=== PATIENT | female | born 1970 | race Two or more races ===

== ENCOUNTER 2022-09-06 08:51 | Inpatient (IN) | payer OTHER ==
[~2022-09-06] VITALS: Ht 157.5 cm; Wt 73.5 kg
[2022-09-06] MEDS ORDERED: SYNTHROID125 MCG PO (14:35)
[2022-09-06] MEDS ORDERED: PROVENTIL HFA6.7 GM IH (14:35)
== END 2022-09-14 14:05 | disposition home or self-care (01) | DRG 738 ==
LOC: O/R 09-12 05:50 → SURH 09-12 09:00 → OB/GYN 09-12 17:18
PROVIDERS: ADMIT Obstetrics & Gynecology Gynecologic Oncology; ATTEND Obstetrics & Gynecology Gynecologic Oncology
PROC: 0UT74ZZ Resection of Bilateral Fallopian Tubes, Percutaneous Endoscopic Approach (ICD-10-PCS; 2022-09-12)
PROC: 0UT24ZZ Resection of Bilateral Ovaries, Percutaneous Endoscopic Approach (ICD-10-PCS; 2022-09-12)
PROC: 0DBW4ZZ Excision of Peritoneum, Percutaneous Endoscopic Approach (ICD-10-PCS; 2022-09-12)
PROC: 07BC4ZZ Excision of Pelvis Lymphatic, Percutaneous Endoscopic Approach (ICD-10-PCS; 2022-09-12)
PROC: 07BD4ZZ Excision of Aortic Lymphatic, Percutaneous Endoscopic Approach (ICD-10-PCS; 2022-09-12)
PROC: 0DBU4ZZ Excision of Omentum, Percutaneous Endoscopic Approach (ICD-10-PCS; 2022-09-12)
PROC: 0DTJ4ZZ Resection of Appendix, Percutaneous Endoscopic Approach (ICD-10-PCS; 2022-09-12)
PROC: 0UT94ZZ Resection of Uterus, Percutaneous Endoscopic Approach (ICD-10-PCS; principal; 2022-09-12 14:45)
DX: C56.2 Malignant neoplasm of left ovary (principal); N80.101 Endometriosis of right ovary, unspecified depth; N80.201 Endometriosis of right fallopian tube, unspecified depth; D25.1 Intramural leiomyoma of uterus; D25.2 Subserosal leiomyoma of uterus; N80.03 Adenomyosis of the uterus; N84.0 Polyp of corpus uteri; N73.6 Female pelvic peritoneal adhesions (postinfective); N80.4 Endometriosis of rectovaginal septum and vagina; Z20.822 Contact with and (suspected) exposure to COVID-19; K36 Other appendicitis

== ENCOUNTER 2024-01-13 08:00 | Day surgery (SDC) | payer OTHER ==
[~2024-01-13 08:00] MED LIST: PROVENTIL HFA6.7 GM IH; SYNTHROID125 MCG PO
[2024-01-13] MEDS ORDERED: CEFAZOLIN SODIUM 1,000 MG VIAL ONE ×2 (10:12→16:09)
[2024-01-13] MEDS ORDERED: LIDOCAINE HCL 1% 20ML VIAL IJ ONE (13:37)
[2024-01-13] MEDS ORDERED: HEPARIN SODIUM,PORCINE 500 UNITS/5 ML VIAL IV ONE (14:08)
[2024-01-13] MEDS ORDERED: FAMOTIDINE/PF 20 MG/10 ML SYRINGE IV SCH (16:00)
[2024-01-13] MEDS ORDERED: RINGERS SOLUTION,LACTATED 1,000 ML IV SCH (16:00)
[2024-01-13] MEDS ORDERED: CEFAZOLIN SODIUM 1,000 MG VIAL IV SCH (16:00)
[2024-01-13] MEDS ORDERED: FAMOTIDINE/PF 20 MG/2 ML VIAL ONE (16:10)
== END 2024-01-13 17:15 | disposition home or self-care (01) ==
LOC: CIR.AMB 08:00
PROVIDERS: ATTEND Specialist
DX: C56.2 Malignant neoplasm of left ovary (principal); Z88.9 Allergy status to unspecified drugs, medicaments and biological substances; E03.9 Hypothyroidism, unspecified; F41.9 Anxiety disorder, unspecified; J45.909 Unspecified asthma, uncomplicated; Z91.013 Allergy to seafood
CPT/HCPCS: 36561; C1751

== ENCOUNTER 2025-01-14 14:01 | Inpatient (IN) | payer OTHER ==
[~2025-01-14] VITALS: Ht 152.4 cm; Wt 68.0 kg
[2025-01-14] MEDS ORDERED: KETOROLAC TROMETHAMINE 30 MG VIAL IV ONE (16:30)
[2025-01-14] MEDS ORDERED: FAMOTIDINE/PF 20 MG/2 ML VIAL IV ONE (16:30)
[2025-01-14] MEDS ORDERED: 0.9 % SODIUM CHLORIDE 500 ML IV ONE ×2 (16:30→17:15)
[2025-01-14] MEDS ORDERED: ONDANSETRON HCL 2 MG/ML VIAL IV ONE (16:30)
[2025-01-14] MEDS ORDERED: FAMOTIDINE/PF 20 MG/2 ML VIAL ONE (17:05)
[2025-01-14] MEDS ORDERED: KETOROLAC TROMETHAMINE 30 MG VIAL ONE (17:05)
[2025-01-14] MEDS ORDERED: ONDANSETRON HCL 2 MG/ML VIAL ONE (17:05)
[2025-01-14 17:35] LABS: BASO % 0.3 % (0.1-1.2); EOS # 0.16 (0.04-0.54); EOS % 2.3 % (0.7-7.0); LYMPH # 1.27 (1.18-3.74); LYMPH % 18.0 % (19.3-53.1); MEAN PLATELET VOLUME 10.00 fl (9.4-12.4); MONO # 0.57 (0.24-0.82); MONO % 8.1 % (4.7-12.5); NEUT # 5.00 (1.56-6.13); NEUT % 70.9 % (34.0-71.1); RED CELL DISTRIBUTION WIDTH 13.5 % (11.6-14.4)
[2025-01-14 17:48] LABS: URINE APPEARANCE Clear; URINE BILIRRUBIN Negative (NEGATIVE); URINE BLOOD Trace; URINE COLOR Yellow; URINE GLUCOSE Negative (NEGATIVE); URINE KETONE Negative (NEGATIVE); URINE LEUKOCYTE Negative; URINE NITRATE Negative; URINE PROTEIN Trace (NEGATIVE); URINE UROBILINOGEN 0.2 E.U./dl
[2025-01-14 17:51] LABS: URINE BACTERIA 14.3 uL (0.0-1933); URINE EPITHELIAL CELLS 4.3 uL (0.0-38.8); URINE WBC 19.9 uL (0.0-23.2)
[2025-01-14 17:52] LABS: INR 1.01
[2025-01-14 17:58] LABS: ALT/SGPT 17 U/L (12-78); AST/SGOT 18 U/L (15-37); BILIRUBIN TOTAL 0.37 mg/dL (0.3-1.2); BILIRUBIN,CONJUGATED < 0.10 mg/dL (0.0-0.2); BUN CREA RATIO 10 (7.0-25.0); CREATININE SERUM 1.81 mg/dL (0.55-1.02); GFR 29.13; GLOBULINA 5.0 G/DL (2.4-3.5); GLUCOSE FASTING 110 mg/dL (65-100); OSMOLALITY SERUM 288 MOSM/KG (275-295)
[2025-01-14 18:06] LABS: URINE CAST 0.00 uL (0.0-1.40); URINE RBC 1.7 uL (0.0-20.8)
[2025-01-14] MEDS ORDERED: 0.9 % SODIUM CHLORIDE 1,000 ML IV SCH (19:00)
[2025-01-14] MEDS ORDERED: ACETAMINOPHEN 500 MG GEL..CAP PO PRN (19:00)
[2025-01-14] MEDS ORDERED: ONDANSETRON HCL 4 MG in 0.9 % SODIUM CHLORIDE 50 ML IV PRN (19:00)
[2025-01-14 21:28] VITALS: BP 142/93
[2025-01-15 00:26] VITALS: BP 152/82; O2SAT 98
[2025-01-15 07:54] VITALS: BP 127/77; O2SAT 99
[2025-01-15] MEDS ORDERED: FAMOTIDINE/PF 20 MG in 0.9 % SODIUM CHLORIDE 8 ML IV PUSH SCH (09:00)
[2025-01-15] MEDS ORDERED: ENOXAPARIN SODIUM 40 MG/0.4 ML SYRINGE SUBCUTANEO SCH (09:00)
[2025-01-15] MEDS ORDERED: TAMSULOSIN HCL 0.4 MG CAP PO SCH (09:00)
[2025-01-15] MEDS ORDERED: POLYETHYLENE GLYCOL 3350 17 GM BLIST.PACK PO SCH (09:54)
[2025-01-15 15:52] VITALS: BP 143/88; O2SAT 100
[2025-01-16 01:17] VITALS: BP 156/9; O2SAT 99
[2025-01-16] MEDS ORDERED: MORPHINE SULFATE 4 MG/ML VIAL IV STA (07:14)
[2025-01-16] MEDS ORDERED: MORPHINE SULFATE 4 MG/ML CARTRIDGE IV PRN (07:15)
[2025-01-16 07:50] LABS: BASO % 0.2 % (0.1-1.2); EOS # 0.23 (0.04-0.54); EOS % 3.7 % (0.7-7.0); LYMPH # 1.07 (1.18-3.74); LYMPH % 17.1 % (19.3-53.1); MEAN PLATELET VOLUME 10.70 fl (9.4-12.4); MONO # 0.57 (0.24-0.82); MONO % 9.1 % (4.7-12.5); NEUT # 4.36 (1.56-6.13); NEUT % 69.6 % (34.0-71.1); RED CELL DISTRIBUTION WIDTH 13.6 % (11.6-14.4)
[2025-01-16 08:21] LABS: BUN CREA RATIO 14.0 (7.0-25.0); CREATININE SERUM 1.88 mg/dL (0.55-1.02); GFR 27.89; GLUCOSE FASTING 87.0 mg/dL (65-100); OSMOLALITY SERUM 288.0 MOSM/KG (275-295)
[2025-01-16 08:28] VITALS: BP 127/83; O2SAT 97
[2025-01-16] MEDS ORDERED: MINERAL OIL 30 ML BLIST.PACK PO NR (11:30)
[2025-01-16] MEDS ORDERED: MAGNESIUM HYDROXIDE 30 ML BLIST.PACK PO NR (11:30)
[2025-01-16] MEDS ORDERED: LACTULOSE 20 G/30 ML BLIST.PACK PO NR (11:30)
[2025-01-16 17:01] VITALS: BP 130/84; O2SAT 98
[2025-01-17 01:28] VITALS: BP 137/81; O2SAT 96
[2025-01-17] MEDS ORDERED: GUAIFENESIN 200 MG/10 ML BLIST.PACK PO SCH (08:00)
[2025-01-17] MEDS ORDERED: IPRATROPIUM BROMIDE 0.5 MG/2.5 ML AMPUL.NEB IH SCH (08:00)
[2025-01-17 09:00] VITALS: BP 147/85; O2SAT 97
[2025-01-17] MEDS ORDERED: 0.9 % SODIUM CHLORIDE 1,000 ML IV SCH (11:45)
[2025-01-17] MEDS ORDERED: ENALAPRILAT DIHYDRATE 1.25 MG/ML VIAL IV PRN (16:45)
[2025-01-17] MEDS ORDERED: MIDAZOLAM HCL 2 MG/2 ML VIAL IV PUSH ONE (17:00)
[2025-01-17] MEDS ORDERED: PROMETHAZINE HCL 50 MG/ML AMPUL IV PRN (17:00)
[2025-01-17] MEDS ORDERED: fentaNYL CITRATE 50 MCG/ML AMPUL IV PUSH ONE (17:00)
[2025-01-17 17:36] VITALS: BP 170/100; O2SAT 97
[2025-01-17 18:27] VITALS: BP 160/90
[2025-01-17 20:54] VITALS: BP 139/83
[2025-01-18 01:17] VITALS: BP 150/82; O2SAT 99
[2025-01-18 05:36] LABS: ALT/SGPT 10.0 U/L (12-78); AST/SGOT 11.0 U/L (15-37); BILIRUBIN TOTAL 0.36 mg/dL (0.3-1.2); BUN CREA RATIO 13.0 (7.0-25.0); CREATININE SERUM 1.96 mg/dL (0.55-1.02); GFR 26.58; GLOBULINA 3.6 G/DL (2.4-3.5); GLUCOSE FASTING 86.0 mg/dL (65-100); OSMOLALITY SERUM 287.0 MOSM/KG (275-295)
[2025-01-18 09:30] VITALS: BP 159/92; O2SAT 99
[2025-01-18] MEDS ORDERED: fentaNYL CITRATE 50 MCG/ML AMPUL IV PUSH ONE (16:45)
[2025-01-18] MEDS ORDERED: MIDAZOLAM HCL 2 MG/2 ML VIAL IV PUSH ONE (16:45)
[2025-01-18 18:00] VITALS: BP 132/85
[2025-01-18] MEDS ORDERED: SODIUM CHLORIDE 0.45 % 1,000 ML IV SCH (18:00)
[2025-01-19 01:39] VITALS: BP 146/86; O2SAT 98
[2025-01-19 10:08] VITALS: BP 135/81; O2SAT 98
[2025-01-19 14:09] LABS: BASO % 0.2 % (0.1-1.2); EOS # 0.19 (0.04-0.54); EOS % 3.5 % (0.7-7.0); LYMPH # 0.86 (1.18-3.74); LYMPH % 15.8 % (19.3-53.1); MEAN PLATELET VOLUME 10.40 fl (9.4-12.4); MONO # 0.46 (0.24-0.82); MONO % 8.5 % (4.7-12.5); NEUT # 3.90 (1.56-6.13); NEUT % 71.6 % (34.0-71.1); RED CELL DISTRIBUTION WIDTH 14.0 % (11.6-14.4)
[2025-01-19 15:08] LABS: BUN CREA RATIO 15.0 (7.0-25.0); CREATININE SERUM 1.32 mg/dL (0.55-1.02); GFR 41.94; GLUCOSE FASTING 111.0 mg/dL (65-100); OSMOLALITY SERUM 290.0 MOSM/KG (275-295)
[2025-01-19 18:21] VITALS: BP 146/69; O2SAT 99
[2025-01-19 18:41] VITALS: BP 147/70
[2025-01-20 03:38] VITALS: BP 136/84; O2SAT 98
[2025-01-20 08:35] VITALS: BP 135/83; O2SAT 98
[2025-01-20 09:36] VITALS: BP 144/87
[2025-01-20 16:47] VITALS: BP 117/76; O2SAT 97
[2025-01-20] MEDS ORDERED: AMINO ACIDS/PROTEIN HYDROLYS 30 ML BLIST.PACK PO SCH (17:00)
[2025-01-21 06:17] LABS: BASO % 0.4 % (0.1-1.2); EOS # 0.25 (0.04-0.54); EOS % 4.7 % (0.7-7.0); LYMPH # 1.14 (1.18-3.74); LYMPH % 21.2 % (19.3-53.1); MEAN PLATELET VOLUME 10.20 fl (9.4-12.4); MONO # 0.45 (0.24-0.82); MONO % 8.4 % (4.7-12.5); NEUT # 3.48 (1.56-6.13); NEUT % 64.7 % (34.0-71.1); RED CELL DISTRIBUTION WIDTH 13.5 % (11.6-14.4)
[2025-01-21 07:04] LABS: BUN CREA RATIO 16.0 (7.0-25.0); CREATININE SERUM 0.87 mg/dL (0.55-1.02); GFR 67.85; GLUCOSE FASTING 80.0 mg/dL (65-100); OSMOLALITY SERUM 279.0 MOSM/KG (275-295)
[2025-01-21 09:09] VITALS: BP 135/86; O2SAT 98
== END 2025-01-21 15:47 | disposition home or self-care (01) | DRG 699 ==
LOC: ER 14:01 → MEDI 19:19
PROVIDERS: General Practice; Internal Medicine; Internal Medicine Nephrology; ADMIT Internal Medicine; ATTEND Internal Medicine
PROC: BW21ZZZ Computerized Tomography (CT Scan) of Abdomen and Pelvis (ICD-10-PCS; 2025-01-16)
PROC: 0T943ZZ Drainage of Left Kidney Pelvis, Percutaneous Approach (ICD-10-PCS; principal; 2025-01-17)
PROC: 0T933ZZ Drainage of Right Kidney Pelvis, Percutaneous Approach (ICD-10-PCS; 2025-01-17)
DX: N28.9 Disorder of kidney and ureter, unspecified (principal); J90 Pleural effusion, not elsewhere classified; N99.528 Other complication of incontinent external stoma of urinary tract; N13.30 Unspecified hydronephrosis; N17.9 Acute kidney failure, unspecified; J45.909 Unspecified asthma, uncomplicated; I10 Essential (primary) hypertension; N32.89 Other specified disorders of bladder; R19.00 Intra-abdominal and pelvic swelling, mass and lump, unspecified site; Z85.43 Personal history of malignant neoplasm of ovary

== ENCOUNTER 2025-02-15 07:35 | Outpatient (CLI) | payer OTHER | END 2025-02-15 07:44 | disposition home or self-care (01) | LOC: SONOGRAMA 07:35 | PROVIDERS: ATTEND Internal Medicine Hematology & Oncology | DX: R10.824 Left lower quadrant rebound abdominal tenderness (principal); R10.822 Left upper quadrant rebound abdominal tenderness; R10.20 Pelvic and perineal pain unspecified side ==